=== PATIENT | female | born 1990 | race Hispanic/Latino ===

== ENCOUNTER 2025-05-15 07:31 | Outpatient (CLI) | payer OTHER ==
[2025-05-15 08:55] LABS: #Basophils 0.05 10x3/uL (0.0-0.2); #Eosinophils 0.13 10x3/uL (0.0-0.7); #Monocytes 0.40 10x3/uL (0.11-0.59); #Neutrophils 4.63 10x3/uL (1.40-6.50); %Basophils 0.7 % (0.0-1.0); %Eosinophils 1.8 % (0.0-10.0); %Lymphocytes 29.2 % (21.0-51.0); %Monocytes 5.4 % (0.0-10.0); %Neutrophils 62.8 % (42.0-75.0); Hematocrit 43.9 % (36.0-47.0); Hemoglobin 14.2 g/dL (12.0-16.0); Mean Corpuscular Hemoglobin 28.8 pg (27.0-31.0); Mean Corpuscular Volume 89.0 fL (78.0-98.0); Platelet Count 318 10x3/uL (130-400); Red Blood Cell (RBC) Count 4.93 mill/uL (4.20-5.40); White Blood Cell (WBC) Count 7.37 10x3/uL (4.8-10.8)
[2025-05-15 09:03] LABS: BHCG - Serum Negative (NEGATIVE); Pregs Control Background? CLEAR/WHITE (CLR/WHITE); Pregs Control Bar Appear? YES (CONTROL BAR)
[2025-05-15 09:08] LABS: Anion Gap 13 mmol/L (10-20); BUN (Urea Nitrogen) 10 mg/dL (7.0-18.7); Calc. Creatinine Clearance 0 mL/min (70-130); Calcium 9.3 mg/dL (7.8-10.44); Carbon Dioxide 24 mmol/L (22-29); Chloride 106 mmol/L (98-107); Glucose 93 mg/dL (70-105); Potassium 4.3 mmol/L (3.5-5.1); Sodium 139 mmol/L (136-145)
== END 2025-05-15 07:32 | disposition home or self-care (01) ==
LOC: LABBT 07:31
PROVIDERS: ATTEND Orthopaedic Surgery
DX: Z01.818 Encounter for other preprocedural examination (principal); G56.01 Carpal tunnel syndrome, right upper limb; M77.11 Lateral epicondylitis, right elbow
CPT/HCPCS: 80048; 84703; 85025

== ENCOUNTER 2025-05-20 05:55 | Day surgery (SDC) | payer OTHER ==
[2025-05-15 08:31] VITALS: BMI 29.7
[2025-05-20] MEDS ORDERED: Scopolamine 1 mg/72 hour Patch ONE (07:18)
[2025-05-20] MEDS ORDERED: Ondansetron PF 4 MG/2 ML Vial ONE (07:19)
[2025-05-20] MEDS ORDERED: Lidocaine 1% PF 5 ML VIAL ONE (07:19)
[2025-05-20] MEDS ORDERED: fentaNYL PF 100 MCG/2 ML SYRINGE ONE (07:19)
[2025-05-20] MEDS ORDERED: Scopolamine 1 mg/72 hour Patch TOP SCH (07:30)
[2025-05-20] MEDS ORDERED: PROPOFOL 200 MG/20 ML VIAL ONE (07:42)
[2025-05-20] MEDS ORDERED: PHENYLEPHRINE-NS 100 MCG/ML 10 ML SYRINGE ONE (08:07)
[2025-05-20] MEDS ORDERED: HYDROcodone/Acetaminophen 5/325 mg Tablet ONE (10:28)
== END 2025-05-20 11:13 | disposition home or self-care (01) ==
LOC: SDC 05:55
PROVIDERS: ATTEND Orthopaedic Surgery
PROC: 01N50ZZ Release Median Nerve, Open Approach (ICD-10-PCS; principal; 2025-05-20)
DX: G56.01 Carpal tunnel syndrome, right upper limb (principal); M77.11 Lateral epicondylitis, right elbow; M75.41 Impingement syndrome of right shoulder
CPT/HCPCS: A6223; C1894; J1100; J2250; J2405; J2704; J3010